=== PATIENT | male | born 1940 | race Caucasian/White ===

== ENCOUNTER 2017-11-17 09:06 | Emergency (ER) | payer OTHER ==
[2017-11-17 09:16] VITALS: RESP 18; TEMP 98; O2SAT 97
--- NOTE | 2017-11-17 09:33 | EDPHY ---
H & P Time Seen by Provider: 11/17/17 09:09 HPI/ROS: This patient was working on a microwave repair at home when he sustained a laceration from a sharp metal age inside the microwave to the dorsum of his right thumb shortly prior to arrival with moderate to heavy bleeding that slowed with direct pressure. He reports mild to moderate pain isolated to the area of injury. He came in by private vehicle for further evaluation of his wound. ROS: Neuro: No numbness or tingling. No difficulty moving the thumb Cardiovascular: No pallor distal to the area of injury. Musculoskeletal: No bony pain to the thumb. 5 point ROS is otherwise negative. Past Medical/Surgical History: Hypertension Smoking Status: Former smoker Physical Exam: Physical Exam Vital signs are normal. General: No acute distress Lungs: No respiratory distress. Cardiac: Brisk capillary refill is intact throughout. Pulses are 2+ and symmetric in the affected extremity. Skin: No rash or pallor. Extremities: Normal/atraumatic except for right thumb Right thumb: Patient has a 2 cm full-thickness laceration to the dorsum of the right thumb over the proximal phalanx with pulsatile bleeding. Subcutaneous tissues evident but there is no evidence of injury to tendon or other deeper structures on direct physical exam. Patient maintains ability to extend the thumb versus resistance with 5/5 strength. Neuro: Alert . Light touch sensation is maintained distal to the wound in the thumb. He maintains 2 point discrimination beyond the wound as well. Initial differential diagnosis: Laceration, tendon injury, vascular injury Constitutional: Initial Vital Signs Temperature (C) 36.6 C 11/17/17 09:13 Heart Rate 77 11/17/17 09:13 Respiratory Rate 18 11/17/17 09:13 Blood Pressure 185/121 H 11/17/17 09:13 O2 Sat (%) 97 11/17/17 09:13 O2 Delivery Mode Room Air Allergies/Adverse Reactions: No Known Allergies Allergy (Verified 01/11/15 13:24) Home Medications: Medication Instructions Recorded Lisinopril 11/17/17 Metroperolo 11/17/17 Tamsulosin HCl 11/17/17 MDM/Departure - MDM Procedures: Digital block: After verbal consent, using a 50 50 mix of 0.5% Marcaine 2% plain lidocaine, 27 gauge needle, chlorhexidine scrub under sterile conditions- 3 injections were administered to the base of the affected finger, 8 mL with good effect. Patient tolerated this well. There were no complications. The wound is 2 cm in length described physical exam. The wound was copiously irrigated with saline. The wound was explored for foreign bodies and none were found. The wound was prepped and draped in the normal sterile fashion. The edges were reapproximated using 4 0 Prolene on a PC 1 needle-8 running sutures with good hemostasis and cosmesis. The patient tolerated the procedure well. There were no complications. Our tech cleaned the wound again after the procedure and applied a tube gauze dressing. We counseled the patient regarding wound care. Medications Given: Discontinued Medications Diphtheria/Tetanus/Acell Pertussis (Boostrix) 0.5 ml IM .ONCE ONE Stop: 11/17/17 10:18 Last Admin: 11/17/17 10:27 Dose: 0.5 ml ED Course/Re-evaluation: Discussion: Uncomplicated thumb laceration. The patient received tetanus immunization His hypertension is noted. He reports that he 0 A's has high blood pressure and circumstances such as these. He admits compliance with his antihypertensive medications will have a recheck of his BP with his primary care physician within the next day or 2. At this time I appreciate no evidence of end-organ injury from high blood pressure. - Depart Disposition: Home, Routine, Self-Care Clinical Impression: Thumb laceration Qualifiers: Encounter type: initial encounter Damage to nail status: without damage Foreign body presence: without foreign body Laterality: right Qualified Code(s) : S61.011A - Laceration without foreign body of right thumb without damage to nail, initial encounter Condition: Good Instructions: Finger Laceration (ED) Additional Instructions: Diagnosis: Thumb laceration Plan: Keep the wound clean and dry for the next 2 days. Then clean it daily with warm soapy water Return for suture removal in 10-12 days Tylenol if needed for pain. Return sooner for redness, discharge or other concerns for infection. Referrals: Candida Sanabria MD [Primary Care Provider] - As per Instructions
[2017-11-17] MEDS ORDERED: TDAP ADULT 0.5 ML INJ (BOOSTRIX) IM ONE (10:17)
[2017-11-17 10:45] VITALS: BP 181/118; PULSE 75
== END 2017-11-17 10:42 | disposition home or self-care (01) ==
LOC: CED 09:06
PROC: 0HQFXZZ Repair Right Hand Skin, External Approach (ICD-10-PCS; principal; 2017-11-17)
DX: S61.011A Laceration without foreign body of right thumb without damage to nail, initial encounter (principal); I10 Essential (primary) hypertension; Z23 Encounter for immunization; Z87.891 Personal history of nicotine dependence; W26.8XXA Contact with other sharp object(s), not elsewhere classified, initial encounter; Y92.009 Unspecified place in unspecified non-institutional (private) residence as the place of occurrence of the external cause; Y99.8 Other external cause status; Y93.89 Activity, other specified

== ENCOUNTER 2017-11-22 07:27 | Emergency (ER) | payer OTHER ==
--- NOTE | 2017-11-22 07:44 | EDPHY ---
H & P Time Seen by Provider: 11/22/17 07:37 HPI/ROS: A treated this patient's left thumb laceration here 5 days prior to arrival and over the past 24 hr he noted some redness emerging at the wound site with slight pain. Concerned him for infection. He had sustained a laceration from a sharp metal edge of the inside of a microwave he was repairing at home. We did irrigate the wound thoroughly in clean did prior to his suturing. He reports no other associated symptoms. He reports daily cleaning with warm soapy water over the past 3 days and use of triple antibiotic ointment. ROS: Constitutional: No fevers or chills. Neuro: No numbness or tingling Integumentary: No other skin complaints. No discharge from the wound. 5 point ROS is otherwise negative Smoking Status: Former smoker Physical Exam: Physical Exam Vital signs are normal. General: No acute distress Lungs: No respiratory distress. Cardiac: Brisk capillary refill is intact throughout. Skin: Patient's left thumb laceration is located on the dorsum of the thumb with Prolene sutures in place. There is mild erythema along half of this wound very slight warmth to touch. There is no fluctuance. No drainage. The total with of the erythema is approximately 5 mm. Neuro: Alert with no sensorimotor deficits in the affected thumb Differential diagnosis: Allergy to triple antibiotic ointment, local wound infection-superficial, atopic dermatitis Constitutional: Initial Vital Signs Temperature (C) 36.6 C 11/22/17 07:36 Heart Rate 79 11/22/17 07:36 Respiratory Rate 20 11/22/17 07:36 Blood Pressure 179/100 H 11/22/17 07:36 O2 Sat (%) 97 11/22/17 07:36 O2 Delivery Mode Room Air Allergies/Adverse Reactions: No Known Allergies Allergy (Verified 01/11/15 13:24) Home Medications: Medication Instructions Recorded Lisinopril 11/17/17 Metroperolo 11/17/17 Tamsulosin HCl 11/17/17 Cephalexin [Keflex (*)] 500 mg PO TID #21 cap 11/22/17 MDM/Departure - [facility] ED Course/Re-evaluation: Discussion: Given clinical appearance and slight warmth to touch, will cover this patient with Keflex for potential superficial wound infection. I also advised him to stop triple antibiotic ointment in use bacitracin instead-less likely to cause irritation. The patient will return 12 days post suture placement for removal, sooner if he develops redness, discharge or other concerns for worsening symptoms. - Depart Disposition: Home, Routine, Self-Care Clinical Impression: Wound infection Condition: Good Instructions: Wound Infection (ED) Additional Instructions: Diagnosis: Superficial wound infection Plan: Continue cleaning the wound daily. However,. Triple antibiotic ointment. Use bacitracin instead. Keflex antibiotic as prescribed. Start this medication this morning and continue for the next week. Apply warm packs to 3 times a day until the redness has resolved. Return for any significant worsening despite the treatment plan. Otherwise return Friday for suture removal. Prescriptions: Cephalexin [Keflex (*)] 500 mg PO TID #21 cap Referrals: Candida Sanabria MD [Primary Care Provider] - As per Instructions
[2017-11-22 07:56] VITALS: BP 167/88
== END 2017-11-22 07:56 | disposition home or self-care (01) ==
LOC: CED 07:27
DX: T81.4XXA Infection following a procedure, initial encounter (principal); Z87.891 Personal history of nicotine dependence; Y82.8 Other medical devices associated with adverse incidents